=== PATIENT | male | born 1975 | race Caucasian/White ===

== ENCOUNTER 2018-11-24 10:33 | Emergency (ER) | payer BC ==
[2018-11-24] MEDS: LIDOCAINE 1% (MDV) 20 ML INJ SC (11:32)
[2018-11-24] MEDS: IBUPROFEN 600 MG TAB PO (11:32)
[2018-11-24] MEDS: TRIMETHOPRIM/SULFAMETHOX (DS) TAB PO (11:32)
[2018-11-24] MEDS: CEPHALEXIN 500 MG CAP PO (11:32)
== END 2018-11-24 12:23 | disposition home or self-care (01) ==
LOC: FTE 10:33
DX: L02.214 Cutaneous abscess of groin (principal)
CPT/HCPCS: 10060; 99283-25